=== PATIENT | male | born 1970 | race Caucasian/White ===

== ENCOUNTER 2023-01-30 18:55 | Emergency (ER) | payer OTHER, SELFPAY ==
[2023-01-30 19:13] VITALS: BP 128/83; PULSE 83; RESP 18; TEMP 36.9; O2SAT 95; BMI 27.3
[2023-01-30] MEDS: fluorescein 1 mg Strip EYE-BOTH (20:40)
[2023-01-30] MEDS: tetracaine 0.5% Op Soln 4 mL Btl 1 DROP EYE-LEFT (20:40)
[2023-01-30] MEDS: eye irrigation 30 mL Btl EYE-BOTH (20:40)
--- NOTE | 2023-01-30 20:40 | PC.NURSE ---
pt meds meds administered by another clinician.
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
[2023-01-30] MEDS: ketorolac 0.5% Op 5 mL Btl 1 DROP EYE-LEFT (21:36)
[2023-01-30] MEDS: polymyxin-trimethoprim Op Soln 10 mL Btl 1 DROP EYE-LEFT (21:37)
== END 2023-01-30 21:11 | disposition home or self-care (01) ==
PROVIDERS: Emergency Provider Emergency Medicine
DX: S05.02XA Injury of conjunctiva and corneal abrasion without foreign body, left eye, initial encounter (principal); W44.9XXA Unspecified foreign body entering into or through a natural orifice, initial encounter
CPT/HCPCS: 99283